=== PATIENT | male | born 1990 | race Caucasian/White ===

== ENCOUNTER 2021-04-24 09:10 | Emergency (ER) | payer OTHER ==
[2021-04-24] MEDS ORDERED: Sodium Chloride 0.9% 10 ML Syringe FLUSH PRN (09:52)
[2021-04-24] MEDS ORDERED: Morphine 4 MG/ML Syringe IVPUSH ONE ×2 (09:52→11:23)
[2021-04-24] MEDS ORDERED: Sodium Chloride 0.9% 1,000 ML IV ONE (09:52)
[2021-04-24] MEDS ORDERED: Sodium Chloride 0.9% 2.5 ML Syringe FLUSH PRN (09:52)
[2021-04-24] MEDS ORDERED: Ondansetron 4 MG/2 ML SDV IVPUSH ONE (09:52)
[2021-04-24] MEDS ORDERED: Ketorolac 15 MG/ML SDV IVPUSH STA ×2 (09:52→11:23)
--- NOTE | 2021-04-24 09:58 | EDM.PDOC ---
ED HPI GENERAL MEDICAL PROBLEM - General Chief Complaint: Abdominal Pain Stated Complaint: LFT SIDE DANYAIDNEY PAIN Time Seen by Provider: 04/24/21 09:13 Source of Information: Reports: Patient History Limitations: Reports: No Limitations - History of Present Illness INITIAL COMMENTS - FREE TEXT/NARRATIVE: 30-year-old male no past medical history presents for 1 day of left flank pain radiating to groin. Pain is colicky, comes and goes, difficult to find a position of comfort. He has not noted any hematuria or dysuria. He has developed nausea and has had a couple episodes of emesis this morning. He has never experienced pain like this in the past. He denies any abdominal pain. Abdomen Pain Score (Numeric/FACES): 7 - Related Data Allergies Allergy/AdvReac Type Severity Reaction Status Date / Time cephalexin [From Keflex] Allergy Other Verified 04/24/21 09:56 Home Meds: Home Meds Ibuprofen [Motrin] 600 mg PO Q6H PRN #30 tab 04/24/21 [Rx] Ondansetron [Zofran ODT] 4 mg PO Q6H PRN #12 tab.dis 04/24/21 [Rx] Tamsulosin HCl [Flomax] 0.4 mg PO DAILY #7 cap.er.24h 04/24/21 [Rx] oxyCODONE HCl/Acetaminophen [Percocet 10-325 mg Tablet] 1 each PO Q4H PRN #18 tablet 04/24/21 [Rx] ED ROS GENERAL - Review of Systems Review Of Systems: Comprehensive ROS is negative, except as noted in HPI. ED EXAM, GENERAL - Physical Exam Exam: See Below Exam Limited By: No Limitations General Appearance: Alert, WD/WN, No Apparent Distress Ears: Hearing Grossly Normal Throat/Mouth: Normal Voice, No Airway Compromise Head: Atraumatic, Normocephalic Respiratory/Chest: No Respiratory Distress, Lungs Clear, Normal Breath Sounds, No Accessory Muscle Use Cardiovascular: Normal Peripheral Pulses, Regular Rate, Rhythm GI/Abdominal: Soft, Non-Tender Back Exam: No: CVA Tenderness (L), CVA Tenderness (R) Neurological: Alert, Normal Cognition Psychiatric: Normal Affect, Normal Mood Skin Exam: Warm, Dry, Intact, Normal Color Course - Vital Signs Last Recorded V/S: Last Vital Signs Temp 97.1 F 04/24/21 09:56 Pulse 73 09/04/21 09:56 Resp 18 04/24/21 09:56 BP 141/73 H 04/24/21 09:56 Pulse Ox 96 04/24/21 09:56 - Orders/Labs/Meds Orders: Active Orders 24 hr Category Date Time Status Ketorolac [Toradol] Med 04/24/21 11:23 Stat 15 mg IVPUSH STAT STA Morphine Med 04/24/21 11:23 Once 4 mg IVPUSH ONETIME ONE Sodium Chloride 0.9% [Saline Flush] Med 04/24/21 09:52 Active 10 ml FLUSH ASDIRECTED PRN Sodium Chloride 0.9% [Saline Flush] Med 04/24/21 09:52 Active 2.5 ml FLUSH ASDIRECTED PRN Saline Lock Insert [OM.PC] Stat Oth 04/24/21 09:52 Ordered Medication Orders Morphine Sulfate (Morphine 4 Mg/Ml Syringe) 4 mg IVPUSH ONETIME ONE Stop: 04/24/21 11:24 Sodium Chloride (Sodium Chloride 0.9% 10 Ml Syringe) 10 ml FLUSH ASDIRECTED PRN PRN Reason: Keep Vein Open Last Admin: 04/24/21 10:22 Dose: 10 ml Documented by: AARON Sodium Chloride (Sodium Chloride 0.9% 2.5 Ml Syringe) 2.5 ml FLUSH ASDIRECTED PRN PRN Reason: Keep Vein Open Last Admin: 04/24/21 10:22 Dose: 2.5 ml Documented by: AARON Labs: Laboratory Tests 04/24/21 04/24/21 04/24/21 Range/Units 10:00 10:17 10:17 WBC 12.95 H (4.0-11.0) K/uL RBC 5.29 (4.50-5.90) M/uL Hgb 14.9 (13.0-17.0) g/dL Hct 43.1 (38.0-50.0) % MCV 81.5 (80.0-98.0) fL MCH 28.2 (27.0-32.0) pg MCHC 34.6 (31.0-37.0) g/dL RDW Std Deviation 40.3 (28.0-62.0) fl RDW Coeff of Rebecca 14 (11.0-15.0) % Plt Count 213 (150-400) K/uL MPV 9.30 (7.40-12.00) fL Neut % (Auto) 78.2 (48.0-80.0) % Lymph % (Auto) 13.6 L (16.0-40.0) % [place] % (Auto) 6.7 (0.0-15.0) % Eos % (Auto) 1.3 (0.0-7.0) % Baso % (Auto) 0.2 (0.0-1.5) % Neut # (Auto) 10.1 H (1.4-5.7) K/uL Lymph # (Auto) 1.8 (0.6-2.4) K/uL [place] # (Auto) 0.9 H (0.0-0.8) K/uL Eos # (Auto) 0.2 (0.0-0.7) K/uL Baso # (Auto) 0.0 (0.0-0.1) K/uL Nucleated RBC % 0.0 /100WBC Nucleated RBCs # 0 K/uL Sodium 139 (136-148) mmol/L Potassium 4.4 (3.5-5.1) mmol/L Chloride 105 (98-107) mmol/L Carbon Dioxide 25.0 (21.0-32.0) mmol/L BUN 15 (7.0-18.0) mg/dL Creatinine 1.3 (0.8-1.3) mg/dL Est Cr Clr Drug Dosing 102.94 mL/min Estimated GFR (MDRD) > 60.0 ml/min Glucose 113 H (74-106) mg/dL Calcium 8.6 (8.5-10.1) mg/dL Total Bilirubin 1.0 (0.2-1.0) mg/dL AST 24 (15-37) IU/L ALT 46 (14-63) IU/L Alkaline Phosphatase 74 (46-116) U/L Total Protein 7.5 (6.4-8.2) g/dL Albumin 4.0 (3.4-5.0) g/dL Globulin 3.5 (2.6-4.0) g/dL Albumin/Globulin Ratio 1.1 (0.9-1.6) Urine Color BROWN Urine Appearance CLOUDY Urine pH 5.0 (5.0-8.0) Ur Specific [place] >= 1.030 (1.001-1.035) Urine Protein 100 H (NEGATIVE) mg/dL Urine Glucose (UA) NEGATIVE (NEGATIVE) mg/dL Urine Ketones NEGATIVE (NEGATIVE) mg/dL Urine Occult Blood LARGE H (NEGATIVE) Urine Nitrite NEGATIVE (NEGATIVE) Urine Bilirubin SMALL H (NEGATIVE) Urine Ictotest NEGATIVE Urine Urobilinogen 0.2 (<2.0) EU/dL Ur Leukocyte Esterase NEGATIVE (NEGATIVE) Urine RBC 40-50 (0-2/HPF) Urine WBC 2-4 (0-5/HPF) Ur Epithelial Cells RARE (NONE-FEW) Amorphous Sediment MANY (NEGATIVE) Urine Bacteria FEW (NEGATIVE) Meds: Medications Generic Name Dose Route Start Last Admin Trade Name Eleazar PRN Reason Stop Dose Admin Morphine Sulfate 4 mg 04/24/21 11:23 Morphine 4 Mg/Ml Syringe IVPUSH 04/24/21 11:24 ONETIME ONE Sodium Chloride 10 ml 04/24/21 09:52 04/24/21 10:22 Sodium Chloride 0.9% 10 Ml Syringe FLUSH 10 ml ASDIRECTED PRN Administration Keep Vein Open Sodium Chloride 2.5 ml 04/24/21 09:52 04/24/21 10:22 Sodium Chloride 0.9% 2.5 Ml Syringe FLUSH 2.5 ml ASDIRECTED PRN Administration Keep Vein Open Discontinued Medications Generic Name Dose Route Start Last Admin Trade Name Eleazar PRN Reason Stop Dose Admin Sodium Chloride 1,000 mls @ 999 mls/hr 04/24/21 09:52 04/24/21 10:22 Normal Saline IV 04/24/21 10:52 999 mls/hr .Bolus ONE Administration Ketorolac Tromethamine 15 mg 04/24/21 09:52 04/24/21 10:22 Ketorolac 15 Mg/Ml Sdv IVPUSH 04/24/21 09:53 15 mg STAT STA Administration Morphine Sulfate 4 mg 04/24/21 09:52 04/24/21 10:22 Morphine 4 Mg/Ml Syringe IVPUSH 04/24/21 09:53 4 mg ONETIME ONE Administration Ondansetron HCl 4 mg 04/24/21 09:52 04/24/21 10:22 Ondansetron 4 Mg/2 Ml Sdv IVPUSH 04/24/21 09:53 4 mg ONETIME ONE Administration - Re-Assessments/Exams Free Text/Narrative Re-Assessment/Exam: 04/24/21 09:[address] imaging to r/o stone; will get labs and UA. Will treat symptomatical ly 04/24/21 11:23 Patient does have a 4 mm stone. Will discharge with analgesia, Flomax, Zofran. Will give urology referral although patient states that he is going home to [place]. Return precautions were discussed at length. Departure - Departure Time of Disposition: 11:24 Disposition: Home, Self-Care 01 Condition: Good Clinical Impression: Kidney stone - Discharge Information Prescriptions: Tamsulosin HCl [Flomax] 0.4 mg PO DAILY #7 cap.er.24h Ibuprofen [Motrin] 600 mg PO Q6H PRN #30 tab PRN Reason: Pain oxyCODONE HCl/Acetaminophen [Percocet 10-325 mg Tablet] 1 each PO Q4H PRN #18 tablet PRN Reason: Pain Ondansetron [Zofran ODT] 4 mg PO Q6H PRN #12 tab.dis PRN Reason: Nausea/Vomiting Instructions: Kidney Stones Referrals: PCP,Not In Area [Primary Care Provider] - Forms: ED Department Discharge Additional Instructions: Urology follow-up: [phone] [address] [place] [address] [address] The following information is given to patients seen in the emergency department who are being discharged to home. This information is to outline your options for follow-up care. We provide all patients seen in our emergency department with a follow-up referral. The need for follow-up, as well as the timing and circumstances, are variable depending upon the specifics of your emergency department visit. If you don't have a primary care physician on staff, we will provide you with a referral. We always advise you to contact your personal physician following an emergency department visit to inform them of the circumstance of the visit and for follow-up with them and/or the need for any referrals to a consulting specialist. The emergency department will also refer you to a specialist when appropriate. This referral assures that you have the opportunity for follow-up care with a specialist. All of these measure are taken in an effort to provide you with optimal care, which includes your follow-up. Under all circumstances we always encourage you to contact your private physician who remains a resource for coordinating your care. When calling for follow-up care, please make the office aware that this follow-up is from your recent emergency room visit. If for any reason you are refused follow-up, please contact the [facility] Emergency Department at and asked to speak to the emergency department charge nurse. Please follow up with your primary care physician. If you do not have a primary care physician, see below: [facility] [address], [place] [id number] [facility] [address] [place] [address] [facility] [address], [place] [address] Sepsis Event Note (ED) - Focused Exam Vital Signs: Vital Signs Temp Pulse Resp BP Pulse Ox 04/24/21 09:56 97.1 F 73 18 141/73 H 96 - My Orders Last 24 Hours: My Active Orders 04/24/21 09:52 Sodium Chloride 0.9% [Saline Flush] 10 ml FLUSH ASDIRECTED PRN Sodium Chloride 0.9% [Saline Flush] 2.5 ml FLUSH ASDIRECTED PRN Saline Lock Insert [OM.PC] Stat 04/24/21 11:23 Morphine 4 mg IVPUSH ONETIME ONE 04/24/21 11:23 Ketorolac [Toradol] 15 mg IVPUSH STAT STA - Assessment/Plan Last 24 Hours: My Active Orders 04/24/21 09:52 Sodium Chloride 0.9% [Saline Flush] 10 ml FLUSH ASDIRECTED PRN Sodium Chloride 0.9% [Saline Flush] 2.5 ml FLUSH ASDIRECTED PRN Saline Lock Insert [OM.PC] Stat 04/24/21 11:23 Morphine 4 mg IVPUSH ONETIME ONE 04/24/21 11:23 Ketorolac [Toradol] 15 mg IVPUSH STAT STA
[2021-04-24 10:54] LABS: BLOOD UREA NITROGEN,BUN 15 mg/dL (7.0-18.0); CHLORIDE,CL 105 mmol/L (98-107); GLUCOSE RANDOM 113 mg/dL (74-106); POTASSIUM,K 4.4 mmol/L (3.5-5.1); SODIUM,NA 139 mmol/L (136-148)
--- NOTE | 2021-04-24 11:03 | CT ---
HISTORY: Flank pain. COMPARISON: None. TECHNIQUE: CT of the abdomen and pelvis. No intravenous contrast. Coronal/sagittal reconstruction images. FINDINGS: Lung bases: There is no pleural or pericardial effusion. The heart size is normal. There is dependent atelectasis. There is no basilar pneumothorax. Abdomen/pelvis: The liver morphology is non cirrhotic. There is no perihepatic ascites. The spleen measures 17.1 cm in length. There is no adrenal mass. There is no pancreatic mass or glandular atrophy. There is a 2 mm stone in the lower pole of the right kidney on image 104, series 201. There is mild left hydronephrosis, secondary to a stone in the left proximal ureter, seen at the level of L3, which measures 4 mm in dimension, and 546 Hounsfield units. No additional urolith is identified. Pelvic calcifications represent phleboliths. The extraperitoneal space of [place] and perivesical fat are normal. There is no wall thickening in the small bowel or colon. There is no perienteric edema. There is no pneumatosis. There is no portal venous gas. No evidence for appendicitis. Nonenlarged inguinal lymph nodes. There is no retroperitoneal or gastrohepatic ligament adenopathy. Small sclerotic lesion in the right proximal femur, likely a benign bone island. There are no suspicious bone lesions. On sagittal reconstruction images, the vertebral body heights and alignment are maintained. IMPRESSION: 1. Mild left hydronephrosis, secondary to a 4 mm left proximal urolith at the level of L3. 2. Additional nephrolith in the right intrarenal collecting system. 3. Normal caliber appendix. 4. No abdominal or pelvic lymphadenopathy. Please note that all CT scans at this facility use dose modulation, iterative reconstruction, and/or weight-based dosing when appropriate to reduce radiation dose to as low as reasonably achievable. Dictated by Noe Henao MD @ 04/24/2021 11:01:33 AM (Electronically Signed)
== END 2021-04-24 11:41 | disposition home or self-care (01) ==
LOC: MW.ED 09:10
DX: N13.2 Hydronephrosis with renal and ureteral calculous obstruction (principal); Z88.1 Allergy status to other antibiotic agents
CPT/HCPCS: 74176; 80053; 81001; 85025; 96374; 96375; 96376; 99284; J1885; J2270; J2405; J7030